=== PATIENT | male | born 1975 | race Caucasian/White ===

== ENCOUNTER 2019-09-11 12:50 | Inpatient (IN) | payer OTHER ==
[~2019-09-11] VITALS: Ht 190.5 cm; Wt 105.3 kg
[2019-09-11 12:59] VITALS: BP 163/98
[2019-09-11 13:26] LABS: URINE AMPHETAMINES < 1000 (1000ng/ml); URINE BARBITURATES < 200 (200ng/ml); URINE BENZODIAZEPINES < 200 (200ng/ml); URINE CANNABINOIDS (THC) < 50 (50ng/ml); URINE COCAINE < 300 (300ng/ml); URINE METHADONE < 300 (300ng/ml); URINE OPIATES < 300 (300ng/ml)
[2019-09-11 13:29] LABS: BILIRUBIN NEGATIVE (NEGATIVE); BLOOD NEGATIVE (NEGATIVE); CLARITY CLEAR (CLEAR); COLOR YELLOW (YELLOW); GLUCOSE NEGATIVE (NEGATIVE); KETONE NEGATIVE (NEGATIVE); LEUKO ESTERASE NEGATIVE (NEGATIVE); NITRITE NEGATIVE (NEGATIVE); SPECIFIC GRAVITY 1.005 (1.005-1.030); UROBILINOGEN 0.2 E.U./dl (0.2-1.0)
[2019-09-11 13:33] LABS: URINE PHENCYCLIDINE < 25 (25ng/ml)
[2019-09-11 14:33] LABS: BASO % 0.4 % (0.0-1.0); EOS # 0.1 10*3/uL (0.0-0.4); EOS % 1.6 % (1.0-4.0); HEMOGLOBIN 16.9 g/dl (14.0-18.0); LYMPH # 0.9 10*3/uL (1.3-4.4); LYMPH % 17.1 % (27.0-41.0); MEAN CELL VOLUME 88.9 fl (80.0-94.0); MEAN CORPUSCULAR HGB 29.4 pg (27.0-31.0); MEAN CORPUSCULAR HGB CONC 33.1 g/dl (33.0-37.0); MEAN PLATELET VOLUME 9.7 fl (9.6-12.3); MONO # 0.6 10*3/uL (0.1-1.0); MONO % 11.5 % (3.0-9.0); NEUT # 3.4 10*3/uL (2.3-7.9); PLATELET COUNT AUTOMATED 189 10*3/uL (130-400); RED BLOOD COUNT 5.74 10*6/uL (4.50-5.90); RED CELL DISTRI WIDTH 13.7 % (0-14.5)
[2019-09-11 14:52] LABS: ACT PARTIAL THROMBO TIME 29.1 SECONDS (20.0-32.1)
[2019-09-11 14:54] LABS: ALBUMIN 3.9 gm/dl (3.1-4.5); ALKALINE PHOSPHATASE 116 U/L (45-117); BUN 8 mg/dl (7-24); CHLORIDE 107 mmol/L (98-107); CREATININE 0.96 mg/dL (0.70-1.30); LIPASE 58 U/L (73-393); POTASSIUM 4.1 mmol/L (3.5-5.1); SGOT/AST 34 IU/L (3-35); SGPT/ALT 54 U/L (12-78); SODIUM 138 mmol/L (136-145); TOTAL PROTEIN 8.3 gm/dL (6.4-8.2)
[2019-09-11 14:55] LABS: ETHYL ALCOHOL < 3.0 mg/dl (<3)
[2019-09-11 15:00] VITALS: BP 164/88; BP 164/89
--- NOTE | 2019-09-11 15:00 | NUR ---
A 44, admitted to , under the services of BRIGETTE Cowan DO with a diagnosis of Alcohol Dependence. Chief complaint is Substance abuse withdrawal. Patient arrived via stretcher from ER. Monitor applied. Initial assessment completed. Vital signs taken and recorded. BRIGETTE COWAN DO notified of admission to the unit. Orders received. See assessment for past medical history, medications and allergies. Patient and/or family oriented to unit. [address] visitation policy reviewed. Clothing/patient valuable form completed. FRANK GARG
[2019-09-11] MEDS ORDERED: DULOXETINE HCL60 MG PO (15:07)
[2019-09-11] MEDS ORDERED: IBU800 MG PO (15:07)
--- NOTE | 2019-09-11 15:09 | NUR ---
NOTIFIED PTS MED REC IS UP TO DATE.
[2019-09-11 16:00] VITALS: BP 164/89
--- NOTE | 2019-09-11 16:12 | NUR ---
PATIENT MEETS [facility]. PATIENT IS WANTING TO FOLLOW UP WITH [facility] FOR OUTPATIENT TREATMENT. WILNER SKINNER B.A. ASSISTANCE COORDINATOR
--- NOTE | 2019-09-11 17:36 | NUR ---
Notified that patients IV site infiltrated and he is refusing another attempt. 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 The IV site was obtained with the use of US. Patient was eductated on the medication running and the reason physicians ordered it. Patient said "it's ok, my makes sure I get the vitamins I need."
--- NOTE | 2019-09-11 19:00 | NUR ---
ASSUMED CARE FOR THIS PT AT THIS TIME. PT RESTING QUIETLY IN BED. CALL LIGHT IN REACH.
--- NOTE | 2019-09-11 19:42 | NUR ---
PT MEDICATED W/ROBAXIN FOR C/O MUSCLE ACHES AND IBUPROFEN FOR C/O H/A 11/02. PT RESTING QUIETLY IN BED. PT REFUSING NEW IV AND BANANA BAG. PT TEACHING GIVEN. PT CONTINUES TO REFUSES IV. CALL LIGHT IN REACH. NO S/S OF WITHDRAWAL NOTED OR ANY EXPRESSED.
[2019-09-11 20:00] VITALS: BP 115/78
[2019-09-12] VITALS: BP 137/78
--- NOTE | 2019-09-12 01:29 | NUR ---
24 HR chart check completed.
[2019-09-12 08:00] VITALS: BP 118/72
[2019-09-12 12:00] VITALS: BP 118/76
--- NOTE | 2019-09-12 14:32 | NUR ---
[facility] STAFF IN TO SEE PATIENT. SPOKE TO PATIENT ABOUT THE VIVITROL SHOT. PATIENT WANTS THE VIVITROL SHOT. [facility] STAFF WILL SET UP APPOINTMENT FOR HIM AT [facility]. PATIENT ALSO WANTS TO CONTINUE FOLLOWING UP WITH [facility]. WILNER SKINNER B.A. DIGITAL LIBRARIAN
[2019-09-12 16:00] VITALS: BP 142/83
--- NOTE | 2019-09-12 19:00 | NUR ---
ASSUMED CARE FOR THIS PT AT THIS TIME. PT SITTING IN ROOM W/FAMILY. NO C/O VOICED.
--- NOTE | 2019-09-12 19:53 | NUR ---
PT MEDICATED W/IBUPROFEN FOR C/O H/A 11/02. FAMILY AT BEDSIDE. NO OTHER WITHDRAWAL C/O VOICED OR NOTED.
[2019-09-12 20:00] VITALS: BP 129/75
--- NOTE | 2019-09-12 21:00 | NUR ---
PT STATES IBUPROFEN WAS EFFECTIVE FOR H/A RELIEF.
--- NOTE | 2019-09-12 23:56 | NUR ---
PT MEDICATED W/VISTARIL FOR ANXIETY AND TRAZADONE FOR INSOMNIA. PT AWAKE IN BED WATCHING TV. NO S/S OF WITHDRAWAL NOTED. CALL LIGHT IN REACH.
[2019-09-13] VITALS: BP 149/83
--- NOTE | 2019-09-13 01:00 | NUR ---
PT RESTING QUIETLY IN BED AT THIS TIME. CALL LIGHT IN REACH.
[2019-09-13 08:00] VITALS: BP 162/86
[2019-09-13 12:00] VITALS: BP 128/83; BP 140/68
--- NOTE | 2019-09-13 15:58 | NUR ---
PATIENT IS GOING TO FOLLOW UP WITH [facility] AND [facility]. PATIENT'S APPOINTMENT IS SCHEDULED AND PATIENT AGREES AND UNDERSTANDS HIS AFTERCARE PLAN. WILNER SKINNER B.A. QUILTER FIXER
[2019-09-13 16:00] VITALS: BP 137/82
[2019-09-13 20:00] VITALS: BP 136/85
--- NOTE | 2019-09-13 20:50 | NUR ---
MOTRIN ADMINISTERED FOR PT CC/O HEADACHE RATED A 4/10. WILL CONTINUE TO MONITOR AND REASSESS. NO OTHER COMPLAINTS AT THIS TIME.
--- NOTE | 2019-09-13 21:47 | NUR ---
PT STATES MOTRIN WAS EFFECTIVE.
--- NOTE | 2019-09-13 22:36 | NUR ---
VISTARIL ADMINISTERED FOR PT C/O ANXIETY AND RESTLESSNESS. WILL CONTINUE TO MONITOR.
[2019-09-14] VITALS: BP 141/79
[2019-09-14 07:53] LABS: BASO % 0.8 % (0.0-1.0); EOS # 0.3 10*3/uL (0.0-0.4); EOS % 8.2 % (1.0-4.0); HEMATOCRIT 45.9 % (42.0-52.0); HEMOGLOBIN 14.8 g/dl (14.0-18.0); LYMPH # 1.1 10*3/uL (1.3-4.4); MEAN CELL VOLUME 92.9 fl (80.0-94.0); MEAN CORPUSCULAR HGB CONC 32.2 g/dl (33.0-37.0); MEAN PLATELET VOLUME 10.6 fl (9.6-12.3); MONO # 0.6 10*3/uL (0.1-1.0); NEUT # 1.7 10*3/uL (2.3-7.9); NEUT % 43.7 % (47.0-73.0); PLATELET COUNT AUTOMATED 141 10*3/uL (130-400); RED BLOOD COUNT 4.94 10*6/uL (4.50-5.90); RED CELL DISTRI WIDTH 14.3 % (0-14.5); WHITE BLOOD COUNT 3.8 10*3/uL (4.8-10.8)
[2019-09-14 08:00] VITALS: BP 144/83
[2019-09-14 08:05] LABS: CREATININE 0.96 mg/dL (0.70-1.30)
--- NOTE | 2019-09-14 08:40 | NUR ---
PT COMPLAINS OF BACK PAIN AT THIS TIME. RATES PAIN AT A 4 OUT OF 10. PRN MOTRIN ADMINISTERED. WILL MONITOR FOR EFFECTIVENESS.
--- NOTE | 2019-09-14 13:41 | NUR ---
Discharge instructions reviewed with patient/family. Patient receptive and verbalizes understanding. Follow-up care arranged. Written instructions given to patient/family. CRISTA CEDENO
== END 2019-09-14 13:41 | disposition home or self-care (01) | DRG 773 ==
LOC: ED 12:50 → 4E 13:46 → EDHOLD 13:46 → 4E 14:25
PROVIDERS: Emergency Medicine; ADMIT Internal Medicine
DX: F11.23 Opioid dependence with withdrawal (principal); F10.239 Alcohol dependence with withdrawal, unspecified; R73.9 Hyperglycemia, unspecified; F41.9 Anxiety disorder, unspecified; F32.9 Major depressive disorder, single episode, unspecified; R65.10 Systemic inflammatory response syndrome (SIRS) of non-infectious origin without acute organ dysfunction; Z79.899 Other long term (current) drug therapy